=== PATIENT | female | born 1985 | race African-American/Black ===

== ENCOUNTER 2019-11-17 09:30 | Outpatient (CLI) | payer OTHER, SELFPAY ==
[2019-11-19 19:58] LABS: Antithrombin III Activity 114 % normal (80-135)
[2019-11-21 04:33] LABS: Homocysteine 9.7 umol/L (<10.4)
[2019-11-21 05:01] LABS: Lupus dRVVT 1:1 Mix Interpreta Not Indicated; Lupus dRVVT Screen 33 sec (<=45); PTT-LA Screen 36 sec (<=40)
[2019-11-21 20:06] LABS: Anti Cardio Antibody IgM <12 MPL (<=12); Anti Cardiolipin Antibody IgA <11 APL (<=11); Anti Cardiolipin Antibody IgG <14 GPL (<=14)
== END 2019-11-17 09:31 | disposition home or self-care (01) ==
PROVIDERS: PCP Internal Medicine; Visit Provider Internal Medicine Hematology & Oncology
DX: I82.4Y1 Acute embolism and thrombosis of unspecified deep veins of right proximal lower extremity (principal)
CPT/HCPCS: 36415; 81240; 81241; 83090; 85300; 85303; 85306; 85613; 85730; 86146; 86147

== ENCOUNTER 2021-01-01 09:54 | Outpatient (CLI) | payer BC, SELFPAY ==
[2021-01-01 11:15] LABS: INR 1.7
[2021-01-01 11:42] LABS: Thyroid Stimulating Hormone 0.265 uIU/mL (0.465-4.680)
[2021-01-01 12:11] LABS: Free T4 Free Thyroxine 0.89 ng/mL (0.78-2.19)
== END 2021-01-01 09:55 | disposition home or self-care (01) ==
PROVIDERS: PCP Nurse Practitioner Family; Visit Provider Nurse Practitioner Family
DX: R79.89 Other specified abnormal findings of blood chemistry (principal); Z86.718 Personal history of other venous thrombosis and embolism
CPT/HCPCS: 36415; 84439; 84443; 85610

== ENCOUNTER 2021-01-02 11:09 | Outpatient (CLI) | payer BC, SELFPAY ==
[2021-01-05 04:31] LABS: Thyroid Peroxidase Antibodies <1 IU/mL (<9)
== END 2021-01-02 11:10 | disposition home or self-care (01) ==
LOC: ANHLAB 11:11
PROVIDERS: PCP Nurse Practitioner Family; Visit Provider Nurse Practitioner Family
DX: R79.89 Other specified abnormal findings of blood chemistry (principal)
CPT/HCPCS: 36415; 86376

== ENCOUNTER 2021-01-28 10:32 | Outpatient (CLI) | payer BC, SELFPAY ==
[2021-01-28 11:06] LABS: INR 1.9
== END 2021-01-28 10:33 | disposition home or self-care (01) ==
LOC: ANHLAB 01-29 10:36
PROVIDERS: PCP Nurse Practitioner Family; Visit Provider Nurse Practitioner Family
DX: I26.99 Other pulmonary embolism without acute cor pulmonale (principal)
CPT/HCPCS: 36415; 85610

== ENCOUNTER 2021-01-29 10:37 | Outpatient (CLI) | payer BC, SELFPAY ==
[2021-01-29 12:30] LABS: HIV 1/2 Ab P24 Ag Result Negative (Negative)
[2021-01-29 13:59] LABS: Hepatitis B Surface Antigen Negative (Negative)
[2021-01-29 14:05] LABS: HAV RESULT Negative (Negative); Hepatitis B Core IgM Result Negative (Negative)
[2021-01-29 14:16] LABS: Hepatitis C Virus Antibody Negative (Negative)
== END 2021-01-29 10:38 | disposition home or self-care (01) ==
PROVIDERS: PCP Nurse Practitioner Family; Visit Provider Obstetrics & Gynecology
DX: Z11.3 Encounter for screening for infections with a predominantly sexual mode of transmission (principal)
CPT/HCPCS: 36415; 80074; 86695; 86696; 86703; 87491; 87591; G0432

== ENCOUNTER 2021-03-03 12:04 | Outpatient (CLI) | payer OTHER, SELFPAY ==
[2021-03-03 12:59] LABS: INR 1.5; Prothrombin Time 17.6 Seconds (11.1-14.7)
== END 2021-03-03 12:05 | disposition home or self-care (01) ==
LOC: ANHLAB 12:09
PROVIDERS: PCP Nurse Practitioner Family; Visit Provider Nurse Practitioner Family
DX: I26.99 Other pulmonary embolism without acute cor pulmonale (principal)
CPT/HCPCS: 36415; 85610

== ENCOUNTER 2021-04-25 13:42 | Outpatient (RCR) | payer OTHER, SELFPAY ==
[2021-03-19 13:02] LABS: INR 1.3; Prothrombin Time 15.9 Seconds (11.1-14.7)
[2021-04-08 14:51] LABS: INR 1.7
[2021-04-25 14:19] LABS: INR 1.1; Prothrombin Time 13.9 Seconds (11.1-14.7)
== END 2021-06-17 23:59 | disposition home or self-care (01) ==
LOC: ANHLAB 13:42
PROVIDERS: PCP Nurse Practitioner Family; Visit Provider Family Medicine
DX: I26.99 Other pulmonary embolism without acute cor pulmonale (principal)
CPT/HCPCS: 36415; 85610

== ENCOUNTER 2021-06-10 12:37 | Outpatient (CLI) | payer OTHER, SELFPAY ==
--- NOTE | ~2021-06-10 | US_ITS ---
EXAMINATION: US venous doppler LE RT DATE: 06/10/2021 13:52 INDICATION: Right lower limb pain. Acute deep vein thrombosis of extremity. TECHNIQUE: Grayscale ultrasound images without and with compression and Doppler ultrasound images of the right lower extremity veins were obtained. COMPARISON: None. FINDINGS: The visualized portions of right profunda (deep) femoral vein, popliteal vein, peroneal veins, car shagger ior tibial veins, and greater saphenous vein outflow are patent. There is thrombus in right common fe moral vein and right femoral vein. IMPRESSION: 1. Deep vein thrombosis involving right common femoral vein and right femoral vein. Reviewed, dictated and finalized at location A. 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
--- NOTE | ~2021-06-10 | CT_ITS ---
EXAMINATION: CTA chest PE protocol DATE: 06/10/2021 13:56 INDICATION: Dyspnea. TECHNIQUE: Computed tomography angiography (CTA) of the chest was performed with 100 mL Omnipaque-350 intravenous contrast timed to evaluate the pulmonary arteries. Coronal maximum intensity projection 3D-reconstructions were created by the technologist. Automated exposure control and iterative reconst ruction technique were employed. Exam dose: 131.22 mGy-cm total exam DLP. COMPARISON: June 05, 2018 CT pulmonary scan FINDINGS: There is diagnostic contrast enhancement of the pulmonary arteries and no evidence of pulmo nary embolism. No thoracic aortic aneurysm or dissection. No hilar or mediastinal mass lesion or lymphadenopathy. Normal heart size. No pericardial or pleural effusion. There is minimal focal infiltrate or atelectasis in the right lower lobe. The lungs are otherwise pushpa ar. Included skeletal structures are unremarkable. IMPRESSION: No evidence of pulmonary embolism Minimal focal infiltrate or atelectasis, right lower lobe Reviewed, dictated and finalized at Location A. Reviewed, dictated and finalized at location A. 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
== END 2021-06-10 12:38 | disposition home or self-care (01) ==
LOC: ANHIMG 12:47
PROVIDERS: PCP Nurse Practitioner Family; Visit Provider Internal Medicine Hematology & Oncology
DX: I82.411 Acute embolism and thrombosis of right femoral vein (principal); R06.00 Dyspnea, unspecified; R91.8 Other nonspecific abnormal finding of lung field
CPT/HCPCS: 71275; 93971; Q9967

== ENCOUNTER 2021-08-13 14:18 | Outpatient (CLI) | payer OTHER, SELFPAY ==
--- NOTE | ~2021-08-13 | US_ITS ---
EXAMINATION: US venous doppler LE RT DATE: 08/13/2021 14:17 INDICATION: Acute deep venous thrombosis currently on anticoagulation TECHNIQUE: Grayscale ultrasound images without and with compression and Doppler ultrasound images of the right lower extremity veins were obtained. COMPARISON: None. FINDINGS: The visualized portions of right common femoral vein, profunda (deep) femoral vein, femoral vein, pop liteal vein, peroneal trunk, posterior tibial veins, peroneal veins, gastrocnemius vein and greater s aphenous vein outflow are patent. IMPRESSION: 1. No deep venous thrombosis in the right lower limb. Reviewed, dictated and finalized at location A.
[2021-08-13 15:27] LABS: HIV 1/2 Ab P24 Ag Result Negative (Negative)
[2021-08-13 16:10] LABS: Hepatitis B Surface Antigen Negative (Negative)
[2021-08-13 16:28] LABS: Hepatitis C Virus Antibody Negative (Negative)
[2021-08-14 14:54] LABS: Rapid Plasma Reagin Non-Reactive (NonReactive)
== END 2021-08-13 14:19 | disposition home or self-care (01) ==
PROVIDERS: Obstetrics & Gynecology; PCP Nurse Practitioner Family; Visit Provider Internal Medicine Hematology & Oncology
DX: I82.4Y1 Acute embolism and thrombosis of unspecified deep veins of right proximal lower extremity (principal); A64 Unspecified sexually transmitted disease
CPT/HCPCS: 36415; 86592; 86703; 86803; 87340; 87529; 93971; G0432

== ENCOUNTER 2021-08-27 10:14 | Outpatient (CLI) | payer OTHER, SELFPAY ==
[2021-08-30 11:42] LABS: Protein S Antigen, Free 21 % normal (50-147)
== END 2021-08-27 10:15 | disposition home or self-care (01) ==
LOC: ANHLAB 10:18
PROVIDERS: PCP Nurse Practitioner Family; Visit Provider Internal Medicine Hematology & Oncology
DX: I82.4Y1 Acute embolism and thrombosis of unspecified deep veins of right proximal lower extremity (principal)
CPT/HCPCS: 36415; 85303; 85306

== ENCOUNTER 2021-08-28 16:52 | Outpatient (CLI) | payer OTHER, SELFPAY ==
[2021-09-02 14:19] LABS: Herpes Simplex Type 1 DNA PCR Not Detected
[2021-09-02 14:22] LABS: Herpes Simplex Type 2 DNA PCR Not Detected
== END 2021-08-28 16:53 | disposition home or self-care (01) ==
PROVIDERS: PCP Nurse Practitioner Family; Visit Provider Obstetrics & Gynecology
DX: Z11.3 Encounter for screening for infections with a predominantly sexual mode of transmission (principal); A64 Unspecified sexually transmitted disease
CPT/HCPCS: 36415; 87529

== ENCOUNTER 2022-04-01 11:45 | Outpatient (CLI) | payer OTHER, SELFPAY ==
[2022-04-01 13:18] LABS: HIV 1/2 Ab P24 Ag Result Negative (Negative)
[2022-04-01 15:50] LABS: Rapid Plasma Reagin Non-Reactive (NonReactive)
[2022-04-01 21:52] LABS: Hepatitis B Surface Antigen Negative (Negative)
[2022-04-01 21:58] LABS: HAV RESULT Negative (Negative); Hepatitis B Core IgM Result Negative (Negative)
[2022-04-01 22:09] LABS: Hepatitis C Virus Antibody Negative (Negative)
== END 2022-04-01 11:46 | disposition home or self-care (01) ==
LOC: ANHLAB 11:48
PROVIDERS: PCP Nurse Practitioner Family; Visit Provider Student in an Organized Health Care Education/Training Program
DX: Z11.3 Encounter for screening for infections with a predominantly sexual mode of transmission (principal)
CPT/HCPCS: 36415; 80074; 86592; 86703; G0432

== ENCOUNTER 2022-06-30 14:23 | Outpatient (CLI) | payer OTHER, SELFPAY ==
--- NOTE | ~2022-06-30 | US_ITS ---
EXAMINATION: US venous doppler LE RT DATE: 06/30/2022 15:05 INDICATION: Acute deep venous thrombosis of the proximal veins of the right lower limb TECHNIQUE: Grayscale ultrasound images without and with compression and Doppler ultrasound images of the right lower extremity veins were obtained. COMPARISON: 08/13/2021 and 06/10/2021 FINDINGS: No significant interval change in a small amount of noncompressive, nonocclusive peripheral thrombus with linear echogenic margins with similar distribution in the right common femoral and proximal supe rficial femoral veins as on the earlier studies and with the ultrasound appearance also favoring resi dual chronic thrombus. The visualized portions of right profunda (deep) femoral vein, mid to distal s uperficial femoral vein, popliteal vein, peroneal trunk, posterior tibial veins, peroneal veins, porfirio rocnemius vein and greater saphenous vein outflow remain patent. IMPRESSION: 1. Small amount of peripheral nonocclusive likely chronic deep venous thrombosis in the right common femoral vein and proximal right superficial femoral vein with similar distribution as on the prior s tudies. No new or progressive thrombus appreciated. Reviewed, dictated and finalized at location A. IMPRESSION: 1. Small amount of peripheral nonocclusive likely chronic deep venous thrombos is in the right common femoral vein and proximal right superficial femoral vein with similar distribution as on the prior studies. No new or progressive throm bus appreciated.
== END 2022-06-30 14:24 | disposition home or self-care (01) ==
PROVIDERS: PCP Nurse Practitioner Family; Visit Provider Internal Medicine Hematology & Oncology
DX: I82.411 Acute embolism and thrombosis of right femoral vein (principal)
CPT/HCPCS: 93971

== ENCOUNTER 2022-12-07 14:05 | Outpatient (CLI) | payer OTHER, SELFPAY ==
--- NOTE | ~2022-12-07 | US_ITS ---
EXAMINATION: US venous doppler LE RT DATE: 12/07/2022 15:48 INDICATION: Acute deep vein thrombosis. On blood thinners. TECHNIQUE: Grayscale ultrasound images without and with compression and Doppler ultrasound images of the right lower extremity veins were obtained. COMPARISON: Ultrasound 06/30/2022 FINDINGS: The visualized portions of the right peroneal veins, posterior tibial veins, and greater saphenous ve in outflow are patent. There is thrombus in right common femoral vein, profunda femoral vein, femoral vein, and popliteal vein. IMPRESSION: 1. Deep vein thrombosis involving right common femoral vein, profunda femoral vein, femoral vein, an d popliteal vein with worsened distribution from 06/30/2022. Reviewed, dictated and finalized at location E. IMPRESSION: 1. Deep vein thrombosis involving right common femoral vein, profunda femoral vein, femoral vein, and popliteal vein with worsened distribution from 3.
== END 2022-12-07 14:06 | disposition home or self-care (01) ==
PROVIDERS: PCP Nurse Practitioner Family; Visit Provider Internal Medicine Hematology & Oncology
DX: I82.411 Acute embolism and thrombosis of right femoral vein (principal)
CPT/HCPCS: 93971

== ENCOUNTER 2022-12-09 11:22 | Outpatient (CLI) | payer OTHER, SELFPAY ==
[2022-12-09 12:49] LABS: HIV 1/2 Ab P24 Ag Result Negative (Negative)
[2022-12-09 13:10] LABS: Hepatitis B Surface Antigen Negative (Negative)
[2022-12-09 13:16] LABS: HAV RESULT Negative (Negative); Hepatitis B Core IgM Result Negative (Negative)
[2022-12-09 13:27] LABS: Hepatitis C Virus Antibody Negative (Negative)
[2022-12-09 14:37] LABS: Rapid Plasma Reagin Non-Reactive (NonReactive)
== END 2022-12-09 11:23 | disposition home or self-care (01) ==
PROVIDERS: PCP Nurse Practitioner Family; Visit Provider Student in an Organized Health Care Education/Training Program
DX: Z20.2 Contact with and (suspected) exposure to infections with a predominantly sexual mode of transmission (principal)
CPT/HCPCS: 36415; 80074; 86592; 86695; 86696; 86703; G0432

== ENCOUNTER 2023-02-23 14:24 | Outpatient (CLI) | payer OTHER, SELFPAY ==
--- NOTE | ~2023-02-23 | US_ITS ---
Duplex Sonography of the right extremity: Indication: DVT Findings: Sagittal and transverse B-mode images as well as color-flow imaging were performed on the r ight femoral and popliteal veins. B-mode examination was done without and with compression in the tr ansverse plane. There is good visualization of the common femoral, proximal profunda femoral, superf icial femoral, greater saphenous, and popliteal veins. There is partial compressibility of the right common femoral and right profunda femoral veins, with p artially occlusive thrombus present. There is also partial thrombosis extending to the proximal porti on of the right greater saphenous vein. Right SFV and right popliteal veins are somewhat small in caliber, demonstrate apparent normal flow a nd compressibility, though somewhat monophasic waveforms. Visualized calf veins also appear patent, t abelino small in caliber. Impression: Partially occlusive thrombus involving the right common femoral vein, right profunda femoral vein, an d proximal right greater saphenous vein. Reviewed, dictated and finalized at location M. COATER Impression: Partially occlusive thrombus involving the right common femoral vein, right pro pedro femoral vein, and proximal right greater saphenous vein.
== END 2023-02-23 14:25 | disposition home or self-care (01) ==
PROVIDERS: PCP Nurse Practitioner Family; Visit Provider Internal Medicine Hematology & Oncology
DX: I82.411 Acute embolism and thrombosis of right femoral vein (principal); I82.811 Embolism and thrombosis of superficial veins of right lower extremity
CPT/HCPCS: 93971

== ENCOUNTER 2023-03-25 13:33 | Outpatient (CLI) | payer OTHER, SELFPAY ==
[2023-03-25 13:54] LABS: Eosinophils Percent Auto 0.4 % (0-4.4); Hematocrit 38.6 % (37.0-47.0); Hemoglobin 12.6 g/dL (12.0-15.0); Immature Granulocyte Absolute 0.01 K/mm3 (0.00-0.031); Immature Granulocyte Percent A 0.4 % (0-0.5); Lymphocytes Absolute Auto 0.89 K/mm3 (0.9-3.2); Lymphocytes Percent Auto 31.3 % (18.3-44.2); Mean Corpuscular HGB Conc 32.6 g/dl (32-36); Mean Corpuscular Hemoglobin 30.5 pg (26-34); Mean Corpuscular Volume 93.5 fl (80-100); Mean Platelet Volume 9.9 fl (7.4-10.4); Monocytes Absolute Auto 0.2 K/mm3 (0.1-0.6); Monocytes Percent Auto 8.5 % (2.6-8.5); Neutrophils Absolute Auto 1.7 K/mm3 (1.3-6.7); Neutrophils Percent Auto 59.4 % (45.5-73.1); Platelet Count Result 285 k/mm3 (150-375); Red Blood Count 4.13 M/mm3 (4.2-5.4); Red Cell Distribution Width 12.8 % (11.5-14.5); White Blood Count 2.8 K/mm3 (4.5-10.0)
[2023-03-25 13:58] LABS: Blood Urea Nitrogen 9 mg/dL (8-26); Carbon Dioxide 25 mmol/L (22-30); Chloride 101 mmol/L (98-109); Estimated Glomerular Filt Rate > 60; Glucose 86 mg/dL (70-105); Ionized Calcium (POC) 1.14 mmol/L (1.11-1.31); Potassium 3.5 mmol/L (3.5-4.9); Sodium 140 mmol/L (138-146)
[2023-03-25 16:49] LABS: Alanine Aminotransferase 14 U/L (6-35); Albumin Level 4.6 g/dL (3.5-5.1); Alkaline Phosphatase 46 U/L (38-126); Anion Gap 7 mmol/L (8-16); Aspartate Amino Transferase 31 U/L (14-36); Bilirubin,Total 0.5 mg/dL (0.2-1.3); Blood Urea Nitrogen 9 mg/dL (7-17); Calcium 9.3 mg/dL (8.4-10.2); Carbon Dioxide 26 mmol/L (22-30); Chloride 105 mmol/L (98-107); Estimated Glomerular Filt Rate > 60; Glucose 86 mg/dL (65-110); Potassium 3.6 mmol/L (3.4-5.0); Sodium 138 mmol/L (137-145)
== END 2023-03-25 13:34 | disposition home or self-care (01) ==
LOC: ANHLAB 13:34
PROVIDERS: PCP Nurse Practitioner Family; Visit Provider Internal Medicine Hematology & Oncology
DX: I82.411 Acute embolism and thrombosis of right femoral vein (principal)
CPT/HCPCS: 36415; 80047; 80053; 85025